=== PATIENT | male | born 1975 | race Caucasian/White ===

== ENCOUNTER → 2017-12-17 | Outpatient (CLI) | payer OTHER ==
--- NOTE | 2017-12-17 19:15 | Diagnostic Imaging Report ---
Exam: Lumbar spine MRI without IV contrast History: Back pain, numbness Comparison studies: None Technique: Sagittal and axial T2 , sagittal T1 and IR, axial spin density oblique and coronal T2. Intravenous contrast: None Findings: Number of lumbar vertebral bodies: 5. Alignment: Strain lumbar curvature. Minimal lumbar curvature convex to the right. Soft tissues: No T2 hyperintense inflammatory changes. Paraspinal muscles: No signal abnormalities. Well-preserved. No atrophic changes Lower thoracic cord: Focal increased T2 signal in the left posterior lateral cord at L1 seen on the axial T2 sequence (series 6, image 6) is without correlate signal abnormality on the axial T2 FS sequence and may be artifactual. No other cord signal abnormalities. The tip of the conus terminates at L2. Cauda equina: No masses. No arachnoiditis. Vertebrae: No compression fractures, infection or neoplasm. Degenerative changes: L1-L2: No abnormalities L2-L3: No abnormalities L3-L4: No abnormalities L4-L5: Minimal loss of T2 disc signal. Small disc bulge with minimal left foraminal stenosis. Patent canal and right foramen. L5-S1: Mildly degenerated disc with loss of disc height and loss of T2 disc signal. Small symmetric disc bulge and mild facet arthrosis without significant canal or foraminal stenosis. Small right facet effusion with small synovial cyst along the right inferior facet joint. IMPRESSION: 1. Mild degenerative changes at L4-L5 and at L5-S1 without significant canal or foraminal stenosis. No nerve root impingement. 2. Small questional focal signal abnormality in the spinal cord may be artifactual. Small demyelinating lesion is felt less likely. Moreover, there is clinical concern for demyelinating disease/cord pathology, cervical and thoracic spine MRIs may further evaluate as warranted. Signed by: Dr. Hamzah Del Real M.D. on 12/17/2017 7:12 PM
== END ==
LOC: MRI 08:20
PROVIDERS: ATTEND Family Medicine
DX: M54.5 Low back pain (principal); R20.0 Anesthesia of skin
CPT/HCPCS: 72148

== ENCOUNTER → 2020-12-18 | Day surgery (SDC) | payer BC, OTHER ==
[2020-12-15 09:50] LABS: BASOPHILS % 0.5 % (0.0-1.0); EOSINOPHILS # (AUTO) 0.1 (0.0-0.4); EOSINOPHILS % 2.2 % (0.0-6.0); HEMATOCRIT 49.9 % (38.2-49.6); HEMOGLOBIN 15.9 g/dL (14.0-18.0); LYMPHOCYTES # (AUTO) 1.4 (1.0-3.2); LYMPHOCYTES % 22.8 % (18.0-39.1); MEAN CORPUSCULAR HGB CONC 31.9 g/dL (31-35); MONOCYTES # (AUTO) 0.8 (0.2-0.8); MONOCYTES % 12.2 % (4.4-11.3); NEUTROPHILS # (AUTO) 3.9 (2.1-6.9); NEUTROPHILS % 61.8 % (38.7-80.0); PLATELET COUNT 373 x10e3/uL (140-360); RED BLOOD COUNT 5.67 x10e6/uL (4.3-5.7); RED CELL DISTRIBUTION WIDTH 15.4 % (11.7-14.4)
[2020-12-15 10:23] LABS: ALBUMIN 3.9 g/dL (3.5-5.0); ANION GAP 13.9 mmol/L (8-16); CALCIUM 8.7 mg/dL (8.4-10.2); CREATININE, SERUM 1.35 mg/dL (0.72-1.25); POTASSIUM 3.9 mmol/L (3.5-5.1)
[~2020-12-18] MED LIST: ADDERALL 30 MG30 MG PO; AMLODIPINE BESYL5 MG PO; ARIMIDEX1 MG PO; BUPIVACAINE 0.25% 30ML SDV ONE; BYSTOLIC10 MG PO; DHEA 2525 MG PO; FENTANYL CITRATE/PF 100MCG/2 ML INJ ONE; LIDOCAINE 1% W/EPINEPHRINE 20 ML VIAL ONE; TESTOSTERO200 MG/1 M IM; [UNRECOGNIZED DRUG - OTHER] IM
[2020-12-18 10:08] VITALS: BP 133/91
== END | disposition home or self-care (01) ==
LOC: OR 06:22
PROVIDERS: ATTEND Surgery
DX: S80.12XA Contusion of left lower leg, initial encounter (principal); I10 Essential (primary) hypertension; F41.9 Anxiety disorder, unspecified; X58.XXXA Exposure to other specified factors, initial encounter; Z88.8 Allergy status to other drugs, medicaments and biological substances; Z01.810 Encounter for preprocedural cardiovascular examination; Z01.812 Encounter for preprocedural laboratory examination; Z20.822 Contact with and (suspected) exposure to COVID-19
CPT/HCPCS: 10140; 36415; 80053; 85025; 93005; J3010; U0002